=== PATIENT | male | born 1950 | race Caucasian/White ===

== ENCOUNTER → 2016-08-29 | Outpatient (CLI) | payer MEDICARE | LOC: CT 08-25 08:00 → LAB 13:21 → CT 13:30 | DX: C18.7 Malignant neoplasm of sigmoid colon (principal); C61 Malignant neoplasm of prostate; T82.828A Fibrosis due to vascular prosthetic devices, implants and grafts, initial encounter; Z98.890 Other specified postprocedural states | CPT/HCPCS: 36415; 82565; 84520; J7050; Q9962 ==